=== PATIENT | male | born 1955 | race Caucasian/White ===

== ENCOUNTER 2017-04-30 19:10 | Emergency (ER) | payer OTHER ==
[~2017-04-30] VITALS: Ht 175.3 cm; Wt 61.2 kg
[~2017-04-30 19:10] MED LIST: ACCUNEB SO1.25 MG/1 INH; ALLOPURINOL 10100 M1 PO; ASPIR 8181 MG PO; ATIVAN0.5 MG PO; BYSTOLIC 5 MG5 M1 PO; CELEXA20 MG PO; COLCHICINE0.6 MG PO; HYDROCODON-ACE1 EAC5 PO; LASIX 40 MG TAB40 M2 PO; LIPITOR 20 MG T20 M1 PO; LISINOPRIL20 MG PO; LISINOPRIL5 MG PO; MOBIC7.5 MG PO; NORCO 10-325 T1 EACH PO; NORCO 5-325 TA1 EACH PO; NORTRIPTYLINE H25 M3 PO; PERCOCET 5-3251 EACH PO; SPIRIVA INH; SPIRIVA18 MCG; SYMBICORT160 MCG/4.; VENTOLIN HFA 1818 GM INH
[2017-04-30] MEDS ORDERED: PROTONIX 20 MG20 M1 PO (20:51)
[2017-04-30 20:56] LABS: HEMATOCRIT 43.8 % (42.0-52.0); HEMOGLOBIN 15.1 gm/dL (14.0-18.0); MCH 31.3 pg (26.0-34.0); MCHC 34.6 g/dL (28.0-37.0); MCV 90.6 fL (80.0-100.0); PLATELET COUNT 228 thou/uL (150-400); RBC 4.83 mil/uL (4.50-6.00); RDW 14.6 % (10.5-14.5); WBC 7.7 thou/uL (4.0-11.0)
[2017-04-30 21:00] LABS: MANUAL DIFF YES
[2017-04-30 21:05] LABS: CALCIUM 9.4 mg/dL (8.5-10.1); CREATININE 0.9 mg/dL (0.7-1.3)
[2017-04-30 22:59] LABS: ABSOLUTE NEUTROPHILS 5.2 thou/uL (1.4-8.2); ANISOCYTOSIS SLIGHT; MACROCYTES SLIGHT; TOTAL CELL COUNT 100
== END 2017-04-30 22:00 | disposition home or self-care (01) ==
LOC: ER 19:10
PROVIDERS: Nurse Practitioner Family
DX: S01.01XA Laceration without foreign body of scalp, initial encounter (principal); F10.129 Alcohol abuse with intoxication, unspecified; I10 Essential (primary) hypertension; E78.5 Hyperlipidemia, unspecified; J44.9 Chronic obstructive pulmonary disease, unspecified; F17.210 Nicotine dependence, cigarettes, uncomplicated; W10.9XXA Fall (on) (from) unspecified stairs and steps, initial encounter; Y93.89 Activity, other specified; Y92.89 Other specified places as the place of occurrence of the external cause; Y99.8 Other external cause status

== ENCOUNTER → 2018-02-03 | Outpatient (CLI) | payer OTHER ==
[~2018-02-03] MED LIST changes: +BIPAP MISCELL; +HYDROCODONE-AP1 EAC6 PO; +LEVAQUIN 750 M750 MG PO; +METOPROLOL SUCC25 M1 PO; +PREDNISONE 5 MG5 M1 PO; +PROTONIX 20 MG20 M1 PO
[2018-02-03 09:33] LABS: CREATININE 0.9 mg/dL (0.7-1.3)
== END ==
LOC: CAT 08:28
PROVIDERS: Internal Medicine Pulmonary Disease
DX: J43.9 Emphysema, unspecified (principal); N20.0 Calculus of kidney

== ENCOUNTER 2019-08-09 14:11 | Inpatient (IN) | payer OTHER ==
[~2019-08-09] VITALS: Ht 157.5 cm; Wt 61.2 kg
[2019-08-09 14:13] VITALS: BP 145/82
[2019-08-09 14:37] LABS: ABSOLUTE NEUTROPHILS 4.8 thou/uL (1.4-8.2); BASOPHILS 0.5 % (0.0-2.0); EOSINOPHILS 4.4 % (0.0-3.0); HEMATOCRIT 42.7 % (42.0-52.0); HEMOGLOBIN 14.1 gm/dL (14.0-18.0); LYMPHOCYTES 18.7 % (24.0-44.0); MCH 30.2 pg (26.0-34.0); MCHC 32.9 g/dL (28.0-37.0); MCV 91.6 fL (80.0-100.0); MONOCYTES 5.5 % (1.0-8.0); PLATELET COUNT 294 thou/uL (150-400); POLYS 70.9 % (36.0-66.0); RBC 4.66 mil/uL (4.50-6.00); RDW 14.4 % (10.5-14.5); WBC 6.8 thou/uL (4.0-11.0)
[2019-08-09 14:42] LABS: CALCIUM 9.6 mg/dL (8.5-10.1); CREATININE 0.9 mg/dL (0.7-1.3); POTASSIUM 3.6 mmol/L (3.5-5.1)
[2019-08-09 14:53] LABS: ALBUMIN 3.2 g/dL (3.4-5.0); TOTAL BILIRUBIN 0.2 mg/dL (<0.1-1.0); TOTAL PROTEIN 6.5 g/dL (6.4-8.2)
[2019-08-09 14:54] LABS: TROPONIN-I 24.69 ng/mL (<0.06)
--- NOTE | 2019-08-09 15:03 | NUR ---
ELEVATED TROPONIN OF 24.[address] BENITO NOTIFIED
--- NOTE | 2019-08-09 15:14 | NUR ---
PATIENT UNDRESSED AND BELONGINGS PLACED IN BAG WITH PATIENT LABLE
[2019-08-09 15:58] LABS: INR 1.1
[2019-08-09 16:03] VITALS: BP 152/79
[2019-08-09 18:45] VITALS: BP 133/70
--- NOTE | 2019-08-09 19:26 | NUR ---
PT ARRIVED TO UNIT APPROX 1840. ALERT AND ORIENTED X4. DENIES SOA. RIGHT GROIN AND LEFT RADIAL POST CATH SITES C/D/I. PRESSURE CAN BE REMOVED AT 1900 BUT SINCE SHIFT CHANGE IS OCCURING FOR PT SAFETY ENTIRE DEVICE PRESSURE RELEASE WILL BE PASSED ON TO NOC NURSE. WILL MAKE HER AWARE OF THIS. INITIAL VSS. NO DISTRESS NOTED.
[2019-08-09 19:27] VITALS: BP 139/66
[2019-08-09 20:00] VITALS: BP 133/70
[2019-08-09 23:14] VITALS: BP 105/44
[2019-08-10 04:47] VITALS: BP 120/98
[2019-08-10 05:22] LABS: HEMATOCRIT 41.2 % (42.0-52.0); HEMOGLOBIN 13.6 gm/dL (14.0-18.0); MCH 30.2 pg (26.0-34.0); MCV 91.5 fL (80.0-100.0); RBC 4.51 mil/uL (4.50-6.00); RDW 14.5 % (10.5-14.5); WBC 7.2 thou/uL (4.0-11.0)
--- NOTE | 2019-08-10 05:24 | NUR ---
ASSESSMENT: PT REMAIN ALERT AND ORIENT TIMES THREE. SB PER MONITOR. HR 48-54. C/O CHRONIC BACK PAIN. PRN PAIN MEDICATION GIVEN WITH GOOD RESULTS. LEFT RADIAL SITE IN TACT, HEMOSTASIS ACHEIEVED WITHIN ONE HOUR. ECHO SCHEDULED FOR THIS AM. SLOW PROGRESS TOWARDS DC GOALS, WILL CONTINUE TO MONITOR.
[2019-08-10 05:32] LABS: CREATININE 0.9 mg/dL (0.7-1.3); POTASSIUM 4.1 mmol/L (3.5-5.1)
[2019-08-10 06:19] LABS: TROPONIN-I 41.62 ng/mL (<0.06)
[2019-08-10 08:00] VITALS: BP 125/52
--- NOTE | 2019-08-10 08:47 | EKG ---
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 : 1955 Requested By: Rosa Elena Person Order Number: [id number] MD: Miguel Tierney Measurements Intervals [place] Rate: 52 P: 64 UT: 156 QRS: -64 QRSD: 133 T: 45 QT: 495 QTc: 461 Interpretive Statements Sinus rhythm RBBB and LAFB Compared to ECG 06/24/2017 12:56:37 Sinus tachycardia no longer present Myocardial infarct finding no longer present Electronically Signed On 08-10-2019 8:46:31 [place] by Miguel Tierney [email or web address] <ELECTRONICALLY SIGNED> By: Miguel Tierney MD, [facility] 08/10/19 0846 1411 1411 Miguel Tierney MD, [facility] /EPI
--- NOTE | 2019-08-10 09:13 | CATHLAB ---
[facility] [address] [place] [address] INVASIVE PROCEDURE REPORT Name: GERMAN GRIMM Room #: 219-P [facility].#: [id number] Admission: 08/09/19 Attend Phys: Graham Carrillo MD Discharge: Date of : 55 Report #: [id number] THIS REPORT FOR: //name// APPROVED REPORT Study performed: 08/09/2019 15:42:32 Patient Details Patient Status: Out-Patient Room #: The patient is a 64 year-old male Event Personnel Thomas Church [employer] [address] [employer], Rahat Monroy RN, Alma Delia Paul RTR, LILIANA Beltre, Shruthi Recinos Monitor, Donte Deleon RTR Monitor Procedures Performed Art Access - R femoral artery* Art Access - L radial artery Left Heart Cath Coronaries, Bypass Grafts [id number] LHCCORCABG Supravalvular Aortography Injection [id number] ISVA Aortogram Abdominal Peripheral Angio 849310 36834 Initial Mod Sed Same Phys/QHP [facility] ER 891607 97696 Mod Sed Same Phys/QHP Ea 598837 49852 Mod Sed Same Phys/QHP Ea 009467 83604 Mod Sed Same Phys/QHP Ea 081112 Indication Non-STEMI , Dyspnea, Unstable angina , Chest pain Risk Factors Peripheral Vascular Disease, Hypercholesterolemia, Coronary Artery DiseaseHypertension, Tobacco History () Previous Procedures/Diagnoses Previous CABG Procedure Narrative The Right Groin^ was infiltrated with 1% Lidocaine subcutaneous anesthesia. A TRANSRADIAL SLENDER 6F GLIDESHEATH KIT #[id number] sheath was inserted into the LEFT RADIAL ARTERY^. Coronary angiography was performed using coronary diagnostic catheters. The right coronary system was accessed and visualized with a JR4 catheter. The left coronary system was accessed and visualized with a JL 3.5 catheter. The left ventricle was accessed and visualized with a Pigtail catheter. Left ventricular/Aortic Valve gradient assessed . Left ventriculogram was performed in 30 degree projection. An aortogram of the ascending aorta was performed. Closure device was deployed with a [facility] [place] [address] INVASIVE PROCEDURE REPORT Name: ALFAGERMAN HILLS Room #: 219-P [facility].#: [id number] Admission: 08/09/19 Attend Phys: Graham Carrillo MD Discharge: Date of : 55 Report #: [id number] VASC BAND R 24CM #[id number]. The patient tolerated the procedure well and there were no complications associated with the procedure. There was no hematoma. A 4 Wolof sheath was inserted into the right femoral artery via modified Seldinger technique. And injection revealed a total occlusion in the right common iliac artery. This sheath was eventually pulled and manual pressure held for 15 mins. Aortagram and Root shot. The diagnostic cardiac catheterization was performed via the left radial artery. A pigtail catheter was placed in the abdominal aorta, an injection revealed a total occlusion of the aorta just after the takeoff of the renal arteries. There is adequate collateralization filling the distal vessels. Intraoperative Conscious Sedation Sedation start time: 1624 Case end Time: 1806 Fentanyl 50 mcg Versed 2.5 mg Fluoro Time: 14.27 minutes Dose: DAP 9640.40 cGycm2 917 mGy Contrast Type and Amount: Omnipaque 275 ml Coronary Angiography The patient's coronary anatomy is left dominant. Diagnostic Cath Left Main There is severe occlusion in the left main, 80%. LAD The proximal segment is filled from the left main artery. There is a patent HARDIN graft with an end-to-side anastomosis to the mid LAD, filling the mid and distal segments. The graft is patent with no flow-limiting lesions. Diagonal 1 This is a small to moderate size caliber vessel with an ostial stenosis of 70%. Recommend medical therapy. Circumflex The left circumflex artery is a dominant vessel with a severe occlusion at the ostium and a total occlusion in the midsegment. OM1 There is a sequential SVG with a mkho-is-izxo anastomosis to the first OM. The graft is a large caliber vessel with mild plaquing in the proximal segment. OM2 The sequential SVG terminates with a end-to-side anastomosis to OM 2. After the anastomosis, there is retrograde filling of the distal left circumflex and the left PDA. Right Coronary This is a small, nondominant vessel. Left Ventriculography The left ventricle is normal in size with normal contractility. The [address] [address] INVASIVE PROCEDURE REPORT Name: GERMAN GRIMM Room #: 219-P [facility] IN M.R.#: [id number] Admission: 08/09/19 Attend Phys: Graham Carrillo MD Discharge: Date of : 55 Report #: [id number] left ventricular ejection fraction is estimated to be 55-60%. Hemodynamics The aortic pressure is 151/77 mmHg with a mean of 83 mmHg. The left ventricular pressure is 178/33 mmHg with a mean of mmHg. The left ventricular end diastolic pressure is 62 mmHg. Pullback from the left ventricle to the aorta revealed no gradient across the aortic valve. Conclusion 1. There is a patent HARDIN graft to the LAD. 2. There is a patent sequential SVG to OM1 and OM 2. There is retrograde filling of the distal circumflex and left PDA. 3. There is a small, nondominant RCA. 4. There is a severe stenosis at the ostium of the first diagonal artery, recommend medical therapy. 5. There is normal LV systolic function. 6. Peripheral vascular disease is evident with a total occlusion of the abdominal aorta. There is adequate collateral filling of the distal vessels. 7. Recommend aggressive risk factor management. <ELECTRONICALLY SIGNED> By: Thomas Church MD 08/10/19912 2 2 Thomas Church MD /INF
[2019-08-10 10:30] VITALS: BP 113/58
--- NOTE | 2019-08-10 10:40 | 2DMMODE ---
[facility] [place] [address] 2 D/M-MODE ECHOCARDIOGRAM Name: GERMAN GRIMM Room #: 219-P [facility] IN ..#: [id number] Admission: 08/09/19 Attend Phys: Graham Carrillo MD Discharge: Date of : 55 Report #: [id number] THIS REPORT FOR: //name// APPROVED REPORT Study performed: 08/10/2019 09:49:17 EXAM: Comprehensive 2D, Doppler, and color-flow Echocardiogram Patient Location: Bedside Room #: 219 Status: routine BSA: 1.61 HR: 55 bpm BP: 125/52 mmHg Rhythm: NSR Other Information Study Quality: Adequate/low window due to COPD Indications Hypertension/HDD DC, HLD, MIRYAM 2D Dimensions RVDd: 32.81 mm IVSd: 10.88 (7-11mm) LVOT Diam: 21.38 (18-24mm) LVDd: 46.63 mm PWd: 12.61 (7-11mm) LVDs: 32.61 (25-40mm) Aortic Root: 34.66 mm IVC: 11.00 mm Volumes Left Atrial Volume (Systole) Single Plane 4CH: 31.04 mL Single Plane 2CH: 37.67 mL LA ESV Index: 25.00 mL/m2 Aortic Valve AoV Peak Dwayne.: 1.27 m/s AO Peak Gr.: 6.46 mmHg LVOT Max P.18 mmHg LVOT Max V: 1.02 m/s TRA Vmax: 2.89 cm2 Mitral Valve E/A Ratio: 1.0 [facility] [address] [place] [address] 2 D/M-MODE ECHOCARDIOGRAM Name: GERMAN GRIMM Room #: 219-P [facility] IN ..#: [id number] Admission: 08/09/19 Attend Phys: Graham Carrillo MD Discharge: Date of : 55 Report #: [id number] MV Decel. Time: 283.79 ms MV E Max Dwayne.: 0.63 m/s MV A Dwayne.: 0.60 m/s MV PHT: 82.30 ms IVRT: 133.79 ms Pulmonary Valve PV Peak Dwayne.: 0.88 m/s PV Peak Gr.: 3.10 mmHg Pulmonary Vein P Vein S: 0.55 m/s P Vein A: 0.25 m/s P Vein D: 0.52 m/s P Vein A Dur.: 129.2 msec P Vein S/D Ratio: 1.06 Tricuspid Valve TR Peak Dwayne.: 2.42 m/s RAP Estimate: 5.00 mmHg TR Peak Gr.: 23.51 mmHg PA Pressure: 28.00 mmHg Left Ventricle The left ventricle is normal size. Mild concentric left ventricular hypertrophy. The left ventricular systolic function is normal. The left ventricular ejection fraction is within the normal range. LVEF is 60-65%. Moderate diastolic dysfunction is present (pseudonormal filling). Right Ventricle The right ventricle is normal size. The right ventricular systolic function is normal. Atria The left atrium size is normal. The right atrium size is normal. Aortic Valve The aortic valve is normal in structure. No aortic regurgitation is present. There is no aortic valvular stenosis. Mitral Valve Mitral valve leaflets are mildly thickened. Trace to mild mitral regurgitation. No evidence of mitral valve stenosis. Tricuspid Valve The tricuspid valve is normal in structure. Trace tricuspid regurgitation. PAP is estimated at 28 mmHg. [facility] [address] [place] [address] 2 D/M-MODE ECHOCARDIOGRAM Name: GERMAN GRIMM Room #: 219-P [facility] IN .R.#: [id number] Admission: 08/09/19 Attend Phys: Graham Carrillo MD Discharge: Date of : 55 Report #: [id number] Pulmonic Valve The pulmonary valve is normal in structure. Trace pulmonic regurgitation. Great Vessels The aortic root is normal in size. IVC is normal in size and collapses >50% with inspiration. Pericardium There is no pericardial effusion. <Conclusion> The left ventricle is normal size. Mild concentric left ventricular hypertrophy. The left ventricular systolic function is normal. Moderate diastolic dysfunction is present (pseudonormal filling). The right ventricle is normal size. The left atrium size is normal. The aortic valve is normal in structure. Trace to mild mitral regurgitation. Trace tricuspid regurgitation. PAP is estimated at 28 mmHg. <ELECTRONICALLY SIGNED> By: Thomas Church MD 08/10/191038 38 103 Thomas Church MD /INF
--- NOTE | 2019-08-10 14:39 | NUR ---
Case opened to follow for dc planning. 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 Med alyxgt anticipated and possible dc home tomorrow per the attending. Pt's called in and requested any new scripts be called in to [facility] at as they get them delievered with no copay. She will check in tomorrow and send a ride for him if dc'd. She reports he is unsteady and has a cane and rwalker at home but often does not utlize it. She does not feel he will need hh at dc and would rather make a f/u appt with his pcp for next week. She asked if he was cleared to drive and copywriter deferred that back to the PCP during next appointment.
[2019-08-10 15:20] VITALS: BP 115/47
--- NOTE | 2019-08-10 17:09 | NUR ---
PT CARE ASSUMED APPROX 0700. ASSESSMENTS CHARTED. DENIES PAIN AND SOA. VSS. UP WITH SBA. PT WEAK AT TIMES. TOLERATING POC. DENIES QUESTIONS OR CONCERNS REGARDING POC. NO DISTRESS NOTED.
[2019-08-10 19:13] VITALS: BP 149/58
[2019-08-11 03:09] VITALS: BP 140/68
--- NOTE | 2019-08-11 05:21 | NUR ---
ASSUMED PT CARE AT 1900. PT IS ALERT AND ORIENTED WITH NO SIGN OF DISTRESS NOTED IN PT. PT IS DROWSY. FALL PRECAUTION IN PLACE, PT IS STABLE. ASSESSMENT COMPLETED AND DOCUMENTED. PAIN MED ADMINISTERED UPON REQUEST, DENIES ANY FURTHER NEEDS AT THIS TIME.
[2019-08-11 06:11] LABS: CALCIUM 9.7 mg/dL (8.5-10.1); CREATININE 0.9 mg/dL (0.7-1.3); POTASSIUM 4.1 mmol/L (3.5-5.1)
[2019-08-11 06:29] LABS: TROPONIN-I 9.81 ng/mL (<0.06)
[2019-08-11] MEDS ORDERED: PLAVIX 75 MG TA75 M1 PO (08:20)
[2019-08-11] MEDS ORDERED: ASPIRIN325 PO ×2 (08:20→08:29)
[2019-08-11 09:52] VITALS: BP 141/68
[2019-08-11 11:15] VITALS: BP 141/68
--- NOTE | 2019-08-11 11:27 | NUR ---
ASSUMED PT AT SHIFT CHANGE. ASSESSMENT CHARTED. MEDS GIVEN PER SEP. VSS. PT A&OX4. NO C/O PAIN OR SOA. GROIN SITE CDI. DISCHARGE ORDERS AND INSTRUCTIONS COMPLETE. TELE AND IV DC'D.
== END 2019-08-11 11:09 | disposition home or self-care (01) | DRG 281 ==
LOC: ER 14:11 → 2N 16:11 → TBACV 16:11 → 2N 19:07 → ENTRNSPT 08-11 10:55 → EDTRNSPTSTS 08-11 10:57 → 2N 08-11 11:09
PROVIDERS: Emergency Medicine; Internal Medicine Cardiovascular Disease; ADMIT Hospitalist
PROC: B41C1ZZ Fluoroscopy of Pelvic Arteries using Low Osmolar Contrast (ICD-10-PCS; principal; 2019-08-09)
PROC: B2131ZZ Fluoroscopy of Multiple Coronary Artery Bypass Grafts using Low Osmolar Contrast (ICD-10-PCS; principal; 2019-08-09)
PROC: B2151ZZ Fluoroscopy of Left Heart using Low Osmolar Contrast (ICD-10-PCS; principal; 2019-08-09)
PROC: B4101ZZ Fluoroscopy of Abdominal Aorta using Low Osmolar Contrast (ICD-10-PCS; 2019-08-09)
PROC: 4A023N7 Measurement of Cardiac Sampling and Pressure, Left Heart, Percutaneous Approach (ICD-10-PCS; 2019-08-09)
PROC: 5A09357 Assistance with Respiratory Ventilation, Less than 24 Consecutive Hours, Continuous Positive Airway Pressure (ICD-10-PCS; 2019-08-09)
PROC: B2111ZZ Fluoroscopy of Multiple Coronary Arteries using Low Osmolar Contrast (ICD-10-PCS; 2019-08-09)
PROC: B2181ZZ Fluoroscopy of Left Internal Mammary Bypass Graft using Low Osmolar Contrast (ICD-10-PCS; 2019-08-09)
DX: I21.4 Non-ST elevation (NSTEMI) myocardial infarction (principal); E44.1 Mild protein-calorie malnutrition; I73.9 Peripheral vascular disease, unspecified; I10 Essential (primary) hypertension; E78.00 Pure hypercholesterolemia, unspecified; H54.40 Blindness, one eye, unspecified eye; G47.33 Obstructive sleep apnea (adult) (pediatric); E78.5 Hyperlipidemia, unspecified; J43.9 Emphysema, unspecified; F10.21 Alcohol dependence, in remission; M19.90 Unspecified osteoarthritis, unspecified site; F17.210 Nicotine dependence, cigarettes, uncomplicated; I25.10 Atherosclerotic heart disease of native coronary artery without angina pectoris; Z96.649 Presence of unspecified artificial hip joint; R00.1 Bradycardia, unspecified; I45.10 Unspecified right bundle-branch block; Z82.49 Family history of ischemic heart disease and other diseases of the circulatory system; Z98.1 Arthrodesis status; Z95.1 Presence of aortocoronary bypass graft; Z87.01 Personal history of pneumonia (recurrent); Z85.46 Personal history of malignant neoplasm of prostate; Z71.6 Tobacco abuse counseling; Z80.9 Family history of malignant neoplasm, unspecified; Z91.14 Patient's other noncompliance with medication regimen; Z99.81 Dependence on supplemental oxygen; Z79.82 Long term (current) use of aspirin; Z79.891 Long term (current) use of opiate analgesic; Z79.899 Other long term (current) drug therapy; Z88.8 Allergy status to other drugs, medicaments and biological substances
CPT/HCPCS: 10081

== ENCOUNTER → 2019-08-25 | Outpatient (CLI) | payer OTHER ==
[~2019-08-25] MED LIST changes: +ASPIRIN325 PO; +PLAVIX 75 MG TA75 M1 PO
== END ==
LOC: SJCVC 14:18
DX: I44.4 Left anterior fascicular block (principal); R94.31 Abnormal electrocardiogram [ECG] [EKG]; I10 Essential (primary) hypertension; I25.10 Atherosclerotic heart disease of native coronary artery without angina pectoris; E78.00 Pure hypercholesterolemia, unspecified; J44.9 Chronic obstructive pulmonary disease, unspecified; M19.90 Unspecified osteoarthritis, unspecified site; Z79.82 Long term (current) use of aspirin; Z79.899 Other long term (current) drug therapy

== ENCOUNTER → 2020-03-07 | Outpatient (CLI) | payer OTHER | LOC: SJCVC 13:31 | PROVIDERS: ATTEND Internal Medicine Cardiovascular Disease | DX: R94.31 Abnormal electrocardiogram [ECG] [EKG] (principal); I45.10 Unspecified right bundle-branch block; R00.1 Bradycardia, unspecified; I25.10 Atherosclerotic heart disease of native coronary artery without angina pectoris; I10 Essential (primary) hypertension; E78.00 Pure hypercholesterolemia, unspecified ==

== ENCOUNTER → 2020-04-15 | Outpatient (CLI) | payer OTHER | LOC: SJCVCIMAG 04-05 08:17 | PROVIDERS: ATTEND Internal Medicine Cardiovascular Disease | DX: I74.09 Other arterial embolism and thrombosis of abdominal aorta (principal); I74.5 Embolism and thrombosis of iliac artery; I70.8 Atherosclerosis of other arteries; I70.298 Other atherosclerosis of native arteries of extremities, other extremity; Z95.1 Presence of aortocoronary bypass graft; Z87.891 Personal history of nicotine dependence ==

== ENCOUNTER → 2020-10-10 | Outpatient (CLI) | payer OTHER | LOC: SJCVC 13:43 | PROVIDERS: ATTEND Internal Medicine Cardiovascular Disease | DX: R94.31 Abnormal electrocardiogram [ECG] [EKG] (principal); I45.10 Unspecified right bundle-branch block; I25.10 Atherosclerotic heart disease of native coronary artery without angina pectoris; I10 Essential (primary) hypertension; E78.00 Pure hypercholesterolemia, unspecified; I73.9 Peripheral vascular disease, unspecified; J44.9 Chronic obstructive pulmonary disease, unspecified; M10.9 Gout, unspecified; G47.33 Obstructive sleep apnea (adult) (pediatric); M19.90 Unspecified osteoarthritis, unspecified site; F32.9 Major depressive disorder, single episode, unspecified; F17.210 Nicotine dependence, cigarettes, uncomplicated; Z85.46 Personal history of malignant neoplasm of prostate; Z72.89 Other problems related to lifestyle; Z79.82 Long term (current) use of aspirin; Z79.899 Other long term (current) drug therapy ==

== ENCOUNTER → 2021-04-14 | Outpatient (CLI) | payer OTHER | LOC: SJCVC 15:04 | PROVIDERS: ATTEND Internal Medicine | DX: R94.31 Abnormal electrocardiogram [ECG] [EKG] (principal); I45.2 Bifascicular block; I10 Essential (primary) hypertension; I25.10 Atherosclerotic heart disease of native coronary artery without angina pectoris; E78.00 Pure hypercholesterolemia, unspecified; J44.9 Chronic obstructive pulmonary disease, unspecified; F32.9 Major depressive disorder, single episode, unspecified; M10.9 Gout, unspecified; E78.5 Hyperlipidemia, unspecified; G47.33 Obstructive sleep apnea (adult) (pediatric); M19.90 Unspecified osteoarthritis, unspecified site; I73.9 Peripheral vascular disease, unspecified; C61 Malignant neoplasm of prostate; F17.210 Nicotine dependence, cigarettes, uncomplicated; Z79.82 Long term (current) use of aspirin; Z79.899 Other long term (current) drug therapy; Z88.8 Allergy status to other drugs, medicaments and biological substances; Z82.49 Family history of ischemic heart disease and other diseases of the circulatory system ==